=== PATIENT | male | born 1940 | race American Indian/Alaskan Native ===

== ENCOUNTER 2016-05-18 09:49 | Day surgery (SDC) | payer MEDICARE ==
[2016-05-17 16:11] LABS: Hematocrit 21.3 % (35.5-45.6); Hemoglobin 6.8 gm/dl (11.8-15.2)
[2016-05-18] MEDS ORDERED: TYLENOL ONE (10:00)
[2016-05-18] MEDS ORDERED: BENADRYL ONE (10:00)
[2016-05-18] MEDS ORDERED: NACL 0.9% 250ML 250 ML IV ONE (10:03)
[2016-05-18] MEDS ORDERED: TYLENOL PO ONE (10:04)
[2016-05-18] MEDS ORDERED: BENADRYL IV ONE (10:04)
[2016-05-18 14:38] VITALS: BP 161/85
== END 2016-05-18 09:50 | disposition home or self-care (01) ==
LOC: OPU 09:49
PROVIDERS: ATTEND Internal Medicine Hematology & Oncology
DX: D64.9 Anemia, unspecified (principal)
CPT/HCPCS: 36415; 36430; 85014; 85018; 86850; 86900; 86901; 86920; 96374; J1200; J7050; P9016